=== PATIENT | female | born 1940 | race Caucasian/White ===

== ENCOUNTER 2016-11-08 06:41 | Inpatient (IN) | payer OTHER ==
[~2016-11-08] VITALS: Ht 154.9 cm; Wt 72.3 kg
--- NOTE | 2016-11-08 07:02 | NUR ---
REC'D A 76 Y/O F BIB FAMILY FOR C/C OF CHILLS/L ARM NUMBNESS. PT STS AROUND 0500, SHE STARTED WITH "FEVERS" AND IS NOW COMPLAINING OF L ARM NUMBNESS, DENIES CHEST PAIN. PT SPEAKS IN CLEAR AND COMPLET SENTENCES, RESPIRATIONS EVEN AND UNLABORED. AAOX4. NO ACUTE/RESP DISTRESS. MSE COMPLETED BY DR GUIDRY. PT AWARE OF PENDING URINE SPECIMEN.
--- NOTE | 2016-11-08 07:23 | NUR ---
REPORT GIVEN TO SHAYLA Byrd RN TO RESUME CARE.
--- NOTE | 2016-11-08 07:23 | NUR ---
LAB AT BEDSIDE.
[2016-11-08 07:44] LABS: BASOPHIL % 0.2 % (0-2); PLATELET COUNT 288 x10^3mcL (130-400); RED CELL DISTRIBUTION WIDTH 13.4 % (11.5-14.5)
[2016-11-08 07:56] LABS: CALCIUM 8.1 mg/dL (8.5-10.1); CARBON DIOXIDE 24.2 mmol/L (21-32); CHLORIDE SERUM 101 mmol/L (98-107); CREATININE SERUM 1.8 mg/dL (0.6-1.0); GLUCOSE SERUM 115 mg/dL (74-106); POTASSIUM SERUM 3.4 mmol/L (3.5-5.1); SODIUM SERUM 137 mmol/L (136-145)
[2016-11-08] MEDS ORDERED: JENTADUETO1 TA1 PO (07:57)
[2016-11-08] MEDS ORDERED: ADULT LOW DOSE81 MG PO (07:57)
[2016-11-08] MEDS ORDERED: LIPI20 PO (07:58)
[2016-11-08] MEDS ORDERED: TRILIPIX135 M1 PO (07:58)
[2016-11-08] MEDS ORDERED: COZAAR100 MG PO (07:58)
[2016-11-08 07:59] LABS: ALKALINE PHOSPHATASE 79 U/L (46-116); ALT/SGPT 25 U/L (14-59); AST/SGOT 17 U/L (15-37); BILIRUBIN TOTAL 0.6 mg/dL (0.20-1.00); TOTAL PROTEIN, SERUM 6.6 g/dL (6.4-8.2)
[2016-11-08] MEDS ORDERED: HYDROCHLOROTH12.5 M2 PO (07:59)
[2016-11-08] MEDS ORDERED: LEVOTHYROXINE0.05 M2 PO (07:59)
[2016-11-08] MEDS ORDERED: NOR10 PO (07:59)
[2016-11-08] MEDS ORDERED: LANTUS SOLOS100 U/M1 SQ (08:00)
[2016-11-08 08:01] LABS: ALBUMIN 2.7 g/dL (3.4-5.0)
--- NOTE | 2016-11-08 08:25 | NUR ---
PT DENIES ANY NAUSEA. PT PROVIDED WITH WATER.
[2016-11-08 08:51] LABS: microscopic required? YES; urine erythrocyte 2+ (NEGATIVE)
--- NOTE | 2016-11-08 09:14 | NUR ---
REPORT CALLED TO RENAN MAZA TO ASSUME CARE FOR THIS PT POST TRANSFER FROM ED TO TELE UNIT
[2016-11-08 09:45] LABS: AMPHETAMINE QUAL UR NONE DETECTED (NEG <=1000)
[2016-11-08 09:50] LABS: MAGNESIUM 1.1 mg/dL (1.8-2.4); PHOSPHOROUS 2.5 mg/dL (2.5-4.9)
[2016-11-08 09:52] LABS: CHOLESTEROL/HDL RATIO 2.5
[2016-11-08 09:56] LABS: FREE T4 1.39 ng/dL (0.76-1.46); FREE THYROXINE INDEX 4.2 ug/dL (1.4-4.5); T3 TOTAL 0.87 ng/mL; T4(THYROXINE) 11.1 ug/dL (4.7-13.3)
--- NOTE | 2016-11-08 10:00 | NUR ---
RECEIVED PT FROM ER NURSE. PT TRANSPORTED VIA GURNEY. PT AMBULATED FROM GURNEY TO BED. PT AWAKE, COOPERATIVE OF CARE. PT STRENGTH +5 BILATERALLY TO ALL EXTREMITIES. PT ON TELE #7 S1S2 ON AUSCULTATION. DENIES CP, SOB, ABD PAIN. PALPABLE PULSES +2 TO ALL EXTREMITIES, NO EDEMA NOTED. PT STATES VOMITING EPISODE BEFORE ARRIVAL TO HOSPITAL, AND BLOOD SUGAR LEVEL AT 68. PT STATES VOIDING WELL WITHOUT DISCOMFORT. MILD GENERALIZED WEAKNESS, SKIN INTACT. IV ACCESS TO RH, PATENT. BED IN LOWEST POSITION, CALL LIGHT WITHIN REACH. FAMILY AT BEDSIDE.
[2016-11-08 11:16] VITALS: BP 107/57
--- NOTE | 2016-11-08 12:10 | NUR ---
BLOOD SUGAR: 58 REPAETED: 61 DR. BLEVINS MADE AWARE OF RESULTS.
[2016-11-08 13:01] VITALS: BP 100/61
--- NOTE | 2016-11-08 17:05 | NUR ---
BLOOD SUGAR: [address] CARRASCO. DO NOT COVER AT THIS MOMENT. PT ON D51/2NS. NO DIET ORDER. PT IN LOW FOWLERS, NO DISCOMFORT NOTED. CALL LIGHT WITHIN REACH. DAUGHTER AT BEDSIDE.
[2016-11-08 17:13] VITALS: BP 113/70
[2016-11-08 17:31] VITALS: Ht 154.9 cm; Wt 72.3 kg
--- NOTE | 2016-11-08 18:50 | NUR ---
PT C/O CHILLS. CHILLS EVIDENT. TEMP: 98.0 ORAL. WARMING METHODS IMPLEMENTED, BLOOD SUGAR: 155. D5 1/2NS DC'D. DIET STARTED. NS FLUIDS STARTED. DR. FELICITY KHAN. IN TO SEE PT. WILL CONTINUE TO MONITOR. CALL LIGHT WITHIN REACH.
--- NOTE | 2016-11-08 19:05 | NUR ---
PT C/O PAIN AT HIPS, AND LOWER BACK. MEDICATED PT PER EMAR. PT TOLERATED WELL. CALL LIGHT WITHIN REACH.
--- NOTE | 2016-11-08 19:50 | NUR ---
PT EATING LATE DINNER TRAY. PT TOLERATING WELL. NO CHILLS EVIDENT, PT STATES FEELING MUCH BETTER. STATES PAIN AT HIPS AND LOWER BACK 0/10. CALL LIGHT WITHIN REACH.
--- NOTE | 2016-11-08 20:00 | NUR ---
REASSESSMENT DONE. PT AWAKE, ABLE TO LET NEEDS KNOWN. NO DISCOMFORT REPORTED AT MOMENT. IV INFUSING TO RH NS AT 80ML/HR. BED IN LOWEST POSITION, CALL LIGHT WITHIN REACH.
--- NOTE | 2016-11-08 20:10 | NUR ---
RECEIVED BLOOD CULTURE LAB RESULT: GRAM STAIN NEGATIVE RODS. DR MENDOZA AWARE OF RESULTS.
--- NOTE | 2016-11-08 20:30 | NUR ---
BLOOD SUGAR: [address] MENDOZA. PT ON NS AND HAS ACTIVE DIET. WILL CONTINUE TO MONITOR.
--- NOTE | 2016-11-08 21:00 | NUR ---
RESUMED CARE OF PT FROM [facility]. PT IS ALERT AND ORIENTED. RESTING. DENIES ANY PAIN OR DISCOMFORT. PT IS AMBULATORY. STEADY GAIT. MILD GENERALIZED WEAKNESS. ADMINISTERED ROCEPHIN IVPB. WILL MONITOR.
[2016-11-08 21:12] LABS: BASOPHIL % 0.3 % (0-2); PLATELET COUNT 310 x10^3mcL (130-400); RED CELL DISTRIBUTION WIDTH 13.6 % (11.5-14.5)
[2016-11-08 23:09] VITALS: BP 104/53
--- NOTE | 2016-11-09 03:00 | NUR ---
JOHNNY BS 203 MG/DL. AWARE OF THE BLOOD SUGAR. NO COVERAGE GIVEN. WILL RECHECKED AGAIN. NO S/S OF HYPERGLYCEMIA. STILL HAS IV NS AT 80 ML PER HOUR INFUSING WELL IN THE RIGHT HAND. PATENT AND INTACT. RESTING MOST OF THE NIGHT.
[2016-11-09 06:21] VITALS: BP 122/63
--- NOTE | 2016-11-09 07:25 | NUR ---
AAO X4.DENIES ANY PAIN/DISCOMFORT.LUNGS CLEAR.ON SR ON THE MONITOR.IVF NS GOING AT 80 ML/HR INFUSING WELL.CALL LIGHT WITHIN REACH.INSTRUCTED TO CALL FOR ANY PAIN/DISCOMFORT.WILL CONTINUE TO MONITOR PT.
[2016-11-09 07:37] LABS: PLATELET COUNT 285 x10^3mcL (130-400); RED CELL DISTRIBUTION WIDTH 13.2 % (11.5-14.5)
--- NOTE | 2016-11-09 07:46 | NUR ---
GOT A CALL FR.LAB.WBC=20.1 WILL INFORM THE RESIDENT DOCTOR.
--- NOTE | 2016-11-09 08:08 | NUR ---
AND MEDICINE TEAM AT BEDSIDE.INFORMED PT ABOUT THE PLAN OF CARE.WILL CHECK BLOOD SUGAR AND ENCOURAGE PT TO WALK.PT COOPERATIVE WITH THE PLAN OF CARE.
--- NOTE | 2016-11-09 08:09 | NUR ---
INFORMED OF PT'S WBC=20.1.ORDERED TO REPEAT CBC.
[2016-11-09 08:12] LABS: CALCIUM 8.1 mg/dL (8.5-10.1); CARBON DIOXIDE 26.2 mmol/L (21-32); CHLORIDE SERUM 103 mmol/L (98-107); CREATININE SERUM 1.4 mg/dL (0.6-1.0); GLUCOSE SERUM 191 mg/dL (74-106); POTASSIUM SERUM 4.3 mmol/L (3.5-5.1); SODIUM SERUM 138 mmol/L (136-145)
[2016-11-09 09:14] VITALS: BP 114/58
[2016-11-09 09:53] LABS: PLATELET COUNT 295 x10^3mcL (130-400); RED CELL DISTRIBUTION WIDTH 13.5 % (11.5-14.5)
[2016-11-09 11:56] LABS: BAND NEUTROPHIL 7 % (0-10); BASOPHIL 0 % (0-2); MONOCYTE 1 % (0-7); SEGMENTED NEUTROPHILS 84 % (37-75)
[2016-11-09 11:57] LABS: PLATELET MORPHOLOGY PLATELETS NORMAL
[2016-11-09 11:58] LABS: rbc morphology (normal/abnorm) ABNORMAL (NORMAL)
[2016-11-09 12:10] LABS: BAND NEUTROPHIL 0 % (0-10); BASOPHIL 0 % (0-2); SEGMENTED NEUTROPHILS 87 % (37-75)
[2016-11-09 12:11] LABS: MONOCYTE 4 % (0-7); PLATELET MORPHOLOGY PLATELETS NORMAL; rbc morphology (normal/abnorm) ABNORMAL (NORMAL)
[2016-11-09 12:25] VITALS: BP 129/65
--- NOTE | 2016-11-09 16:30 | NUR ---
PT TOOK A SHOWER ORDERD.TOLERATED IT WELL.
[2016-11-09 17:15] VITALS: BP 122/60
--- NOTE | 2016-11-09 18:30 | NUR ---
NO SIGNIFICANT CHANGE NOTED.WILL ENDORSE TO NEXT SHIFT.
--- NOTE | 2016-11-09 19:30 | NUR ---
PT IS ALERT AND ORIENTED. PLEASANT AND COOPERATIVE, PLEASANT AND COOPERATIVE. CLEAR LUNG SOUNDS ON AUSCULTATIONS BILATERALLY. AMBULATES STEADILY. DENIES ANY PAIN OR DISCOMFORT. STILL GETTING NS AT 80 ML PER HOUR INFUSING WELL IN THE RIGHT HAND. PATENT AND INTACT. AND STILL RECEIVING ROCEPHINE IV ANTIBIOTIC. WILL MONITOR.
[2016-11-09 22:40] VITALS: BP 122/62
--- NOTE | 2016-11-10 03:30 | NUR ---
RANDOM BLOOD SUGAR TAKEN 195MG/DL. WILL MONITOR.
[2016-11-10 05:02] VITALS: BP 122/70
--- NOTE | 2016-11-10 05:26 | NUR ---
PT IS RESTING. DENIES ANY PAIN OR DISCOMFORT. STILL HAS IV NS AT 80 ML PER HOUR INFUSING WELL IN THE RIGHT HAND. PATENT AND INTACT, MADE COMFORTABLE IN BED. CALL LIGHT WITHIN EASY REACH.
[2016-11-10 06:49] LABS: BASOPHIL % 0.2 % (0-2); PLATELET COUNT 298 x10^3mcL (130-400); RED CELL DISTRIBUTION WIDTH 13.4 % (11.5-14.5)
[2016-11-10 07:07] LABS: CALCIUM 8.3 mg/dL (8.5-10.1); CHLORIDE SERUM 106 mmol/L (98-107); CREATININE SERUM 1.3 mg/dL (0.6-1.0); GLUCOSE SERUM 183 mg/dL (74-106); MAGNESIUM 2.1 mg/dL (1.8-2.4); PHOSPHOROUS 2.6 mg/dL (2.5-4.9); POTASSIUM SERUM 4.5 mmol/L (3.5-5.1); SODIUM SERUM 138 mmol/L (136-145)
--- NOTE | 2016-11-10 07:25 | NUR ---
REASSESSMENT DONE. PT AWAKE, COOPERATIVE OF CARE. S1S2 ON AUSCULTATION. DENIES CP, SOB, ABD PAIN. PT DENIES HEMATURIA, DYSURIA, FREQUENCY. PT ON ABX THERAPY FOR UTI. PT AMBULATORY, SKIN INTACT. IV INFUSING WELL TO RH NS AT 10ML/HR. BED IN LOWEST POSITION, CALL LIGHT WITHIN REACH. WILL CONTINUE TO MONITOR.
[2016-11-10 08:38] VITALS: BP 107/71
--- NOTE | 2016-11-10 10:00 | NUR ---
PT AMBULATING IN ROOM, STEADY GAIT NOTED. SITTING AT BEDSIDE CHAIR WATCHING TV. STANDS AT TIMES. CALL LIGHT WITHIN REACH.
[2016-11-10 12:00] VITALS: BP 129/69
--- NOTE | 2016-11-10 12:35 | NUR ---
BLOOD GLUCOSE: 261 COVERED WITH INSULIN PER SLIDING SCALE. PT TOLERATED WELL. CALL LIGHT WITHIN REAACH.
--- NOTE | 2016-11-10 16:40 | NUR ---
BLOOD GLUCOSE: 238 COVERED WITH INSULIN PER SLIDING SCALE. PT TOLERATED WELL. CALL LIGHT WITHIN REACH.
[2016-11-10 18:19] VITALS: BP 132/83
--- NOTE | 2016-11-10 19:30 | NUR ---
RECEIVED PT IN BED AAOX4 NO ACUTE DISTRESS NOTED ,RUTHY SOUNDS CTA , ABD SOFT BS ACTIVE X4, PIV TO LEFT ARM INTACT INFUSING WELL , PT;S ON TELE NUMBER 7 THAT SHOWS NSR , CALL LIGHT WITHIN PT'S REACH , WILL CON'T TO MONITOR [PT .
[2016-11-10 21:27] VITALS: BP 136/75
--- NOTE | 2016-11-10 23:18 | NUR ---
NOTED PT'S IV INFILTRATED 22G INSERTED TO LEFT ARM , PT TOLERATED WELL , DC'D OLD IV CATH INTACT NO BLEEDING NOTED.
--- NOTE | 2016-11-11 03:15 | NUR ---
PT'S AWAKE SITTING ON THE CHAIR , TELE NSR , PIV INTACT INFUSING WELL .
[2016-11-11 05:21] VITALS: BP 127/71
[2016-11-11 06:28] LABS: PLATELET COUNT 370 x10^3mcL (130-400); RED CELL DISTRIBUTION WIDTH 13.5 % (11.5-14.5)
[2016-11-11 06:51] LABS: CALCIUM 8.9 mg/dL (8.5-10.1); CHLORIDE SERUM 102 mmol/L (98-107); GLUCOSE SERUM 130 mg/dL (74-106); POTASSIUM SERUM 4.5 mmol/L (3.5-5.1); SODIUM SERUM 137 mmol/L (136-145)
--- NOTE | 2016-11-11 06:51 | NUR ---
NO CHANGES OF CONDITION NOTED , ALL DUE MEDS GIVEN NO REACTION NOTED TELE NSR ,PIV INTACT INFUSING WELL .
[2016-11-11 08:00] VITALS: BP 141/75
[2016-11-11 09:34] VITALS: BP 138/68
[2016-11-11 12:43] LABS: BAND NEUTROPHIL 2 % (0-10); BASOPHIL 0 % (0-2); MONOCYTE 5 % (0-7); SEGMENTED NEUTROPHILS 88 % (37-75)
[2016-11-11 12:44] LABS: PLATELET MORPHOLOGY PLATELETS INCREASED; rbc morphology (normal/abnorm) NORMAL (NORMAL)
[2016-11-11] MEDS ORDERED: LAC PO (13:01)
[2016-11-11] MEDS ORDERED: CIPRO500 MG PO (13:01)
[2016-11-11 14:08] VITALS: BP 127/68
[2016-11-11 15:32] LABS: BASOPHIL % 0.2 % (0-2); PLATELET COUNT 399 x10^3mcL (130-400); RED CELL DISTRIBUTION WIDTH 13.6 % (11.5-14.5)
[2016-11-11 16:24] VITALS: BP 127/68
== END 2016-11-11 16:39 | disposition home or self-care (01) | DRG 689 ==
LOC: ED 06:41 → DU 08:24
PROVIDERS: Emergency Medicine; Family Medicine; ADMIT Family Medicine
DX: N39.0 Urinary tract infection, site not specified (principal); G93.41 Metabolic encephalopathy; N17.0 Acute kidney failure with tubular necrosis; E43 Unspecified severe protein-calorie malnutrition; D68.69 Other thrombophilia; E11.65 Type 2 diabetes mellitus with hyperglycemia; E86.0 Dehydration; E87.6 Hypokalemia; E83.42 Hypomagnesemia; E03.9 Hypothyroidism, unspecified; E78.5 Hyperlipidemia, unspecified; D63.8 Anemia in other chronic diseases classified elsewhere; Z79.4 Long term (current) use of insulin; Z68.30 Body mass index [BMI] 30.0-30.9, adult
CPT/HCPCS: 80307; 83880; 84439; 94150; J0696; J1815; J1885; J2405; J3475; J3490; J7030; Q0092

== ENCOUNTER 2018-07-19 13:31 | Emergency (ER) | payer OTHER ==
[~2018-07-19 13:31] MED LIST: ADULT LOW DOSE81 MG PO; CIPRO500 MG PO; COZAAR100 MG PO; HYDROCHLOROTH12.5 M2 PO; JENTADUETO1 TA1 PO; LAC PO; LANTUS SOLOS100 U/M1 SQ; LEVOTHYROXINE0.05 M2 PO; LIPI20 PO; NOR10 PO; TRILIPIX135 M1 PO
[2018-07-19 17:38] LABS: microscopic required? NO
[2018-07-19 17:45] LABS: BASOPHIL % 0.5 % (0-2); PLATELET COUNT 340 x10^3mcL (130-400); RED CELL DISTRIBUTION WIDTH 13.1 % (11.5-14.5)
[2018-07-19 18:02] LABS: CALCIUM 9.3 mg/dL (8.5-10.1); CARBON DIOXIDE 27.4 mmol/L (21-32); CHLORIDE SERUM 94 mmol/L (98-107); CREATININE SERUM 1.7 mg/dL (0.6-1.0); GLUCOSE SERUM 203 mg/dL (74-106); POTASSIUM SERUM 3.7 mmol/L (3.5-5.1); SODIUM SERUM 131 mmol/L (136-145)
[2018-07-19 18:11] LABS: ALBUMIN 4.1 g/dL (3.4-5.0); ALKALINE PHOSPHATASE 87 U/L (46-116); ALT/SGPT 27 U/L (14-59); AST/SGOT 20 U/L (15-37); BILIRUBIN TOTAL 0.41 mg/dL (0.20-1.00); FREE T4 1.34 ng/dL (0.76-1.46); LIPASE 180 IU/L (73-393); TOTAL PROTEIN, SERUM 8.4 g/dL (6.4-8.2)
[2018-07-19 18:14] LABS: UA SPECIFIC GRAVITY <=1.005 (1.005-1.035); urine erythrocyte NEGATIVE (NEGATIVE)
[2018-07-19 21:22] VITALS: BP 111/75
== END 2018-07-19 21:22 | disposition home or self-care (01) ==
LOC: ED 13:31
PROVIDERS: Emergency Medicine
DX: R42 Dizziness and giddiness (principal); R51 Headache; I10 Essential (primary) hypertension; E11.9 Type 2 diabetes mellitus without complications; E78.00 Pure hypercholesterolemia, unspecified; E03.9 Hypothyroidism, unspecified
CPT/HCPCS: 83880; 84439; 87804; J7040; Q0092

== ENCOUNTER 2020-09-07 15:20 | Emergency (ER) | payer OTHER ==
[~2020-09-07] VITALS: Ht 157.5 cm; Wt 75.7 kg
[2020-09-07 15:32] VITALS: Ht 157.5 cm; Wt 75.7 kg
[2020-09-07 16:42] LABS: PLATELET COUNT 308 x10^3mcL (179-408); RED CELL DISTRIBUTION WIDTH 12.8 % (12.3-17.7)
[2020-09-07 16:54] LABS: CALCIUM 8.9 mg/dL (8.5-10.1); CARBON DIOXIDE 26.2 mmol/L (21-32); CHLORIDE SERUM 95 mmol/L (98-107); CREATININE SERUM 1.7 mg/dL (0.6-1.0); GLUCOSE SERUM 215 mg/dL (74-106); POTASSIUM SERUM 4.3 mmol/L (3.5-5.1); SODIUM SERUM 130 mmol/L (136-145)
[2020-09-07 16:59] LABS: ALBUMIN 3.6 g/dL (3.4-5.0); ALKALINE PHOSPHATASE 83 U/L (46-116); ALT/SGPT 22 U/L (14-59); AST/SGOT 12 U/L (15-37); BILIRUBIN TOTAL 0.2 mg/dL (0.20-1.00); LIPASE 134 IU/L (73-393); TOTAL PROTEIN, SERUM 7.2 g/dL (6.4-8.2)
[2020-09-07 17:18] LABS: microscopic required? YES; urine erythrocyte TRACE (NEGATIVE)
[2020-09-07 18:02] VITALS: BP 131/65
== END 2020-09-07 18:01 | disposition home or self-care (01) ==
LOC: ED 15:20
PROVIDERS: Emergency Medicine
DX: N39.0 Urinary tract infection, site not specified (principal); E11.65 Type 2 diabetes mellitus with hyperglycemia; E78.00 Pure hypercholesterolemia, unspecified; E03.9 Hypothyroidism, unspecified; Z90.89 Acquired absence of other organs
CPT/HCPCS: J1885; J2405